=== PATIENT | female | born 1960 | race Caucasian/White ===

== ENCOUNTER 2016-08-19 21:26 | Emergency (ER) | payer SELFPAY ==
[2016-08-19] MEDS ORDERED: ASPIRIN 81 MG TABLET, CHEWABLE PO ONE (21:38)
[2016-08-19] MEDS ORDERED: MECLIZINE HCL 25 MG TABLET PO ONE (22:51)
--- NOTE | 2016-08-19 23:04 | ER Document Report ---
ED General - General Mode of Arrival: Ambulatory Information source: Patient TRAVEL OUTSIDE OF THE [place] IN LAST 30 DAYS: No - HPI Patient complains to provider of: Chest Pain Onset: This evening - 2100 Onset/Duration: Sudden, Persistent Quality of pain: Pressure Associated symptoms: Chest pain, Shortness of breath, Other - Dizziness Exacerbated by: Walking <SLIM SOARES - Last Filed: 08/19/16 22:54> <GISELLE CUNNINGHAM - Last Filed: 08/20/16 01:19> - General Chief Complaint: Chest Pain > 30 Stated Complaint: CHEST PAIN Time Seen by Provider: 08/19/16 22:43 Notes: Patient is a 56-year-old female presenting to the emergency department concerned of chest pain radiating into her right shoulder and arm onset approximately 2100 this evening. Patient states she was arguing on the phone with her youngest daughter when the pain began. Patient also complains of dizziness onset yesterday continuing into today, and shortness of breath onset today, worse with exertion. Patient's only past medical history includes hypothyroidism, and she smokes approximately 1 pack per day. Patient states she just moved here from [place], so she has not established with a primary care physician at this point. (SLIM SOARES) - Related Data Allergies/Adverse Reactions: No Known Allergies Allergy (Unverified 08/19/16 21:38) Past Medical History - General Information source: Patient - Social History Smoking Status: Current Every Day Smoker Cigarette use (# per day): Yes - 20 Frequency of alcohol use: Rare Drug Abuse: None Family History: Reviewed & Not Pertinent Patient has suicidal ideation: No Patient has homicidal ideation: No Endocrine Medical History: Reports: Hx Hypothyroidism Past Surgical History: Reports: Hx Cholecystectomy, Hx Orthopedic Surgery - Ankle-bone spur <SLIM SOARES - Last Filed: 08/19/16 22:54> Review of Systems - Review of Systems Constitutional: No symptoms reported EENT: No symptoms reported Cardiovascular: See HPI, Chest pain - radiates into R shoulder/arm, Dizziness Respiratory: See HPI, Short of breath - worse with exertion Gastrointestinal: No symptoms reported Genitourinary: No symptoms reported Female Genitourinary: No symptoms reported Musculoskeletal: No symptoms reported Skin: No symptoms reported Hematologic/Lymphatic: No symptoms reported Neurological/Psychological: No symptoms reported -: Yes All other systems reviewed and negative <SLIM SOARES - Last Filed: 08/19/16 22:54> Physical Exam - General General appearance: Alert In distress: None - HEENT Head: Normocephalic, Atraumatic, Other - Increased dizziness with rapid head movement Eyes: Normal Pupils: PERRL Pharynx: Normal - Respiratory Respiratory status: No respiratory distress Chest status: Nontender Breath sounds: Other - Coarse breath sounds, left > right Chest palpation: Normal - Cardiovascular Rhythm: Regular Heart sounds: Normal auscultation Murmur: No - Abdominal Inspection: Normal Tenderness: Nontender - Back Back: Normal, Nontender - Extremities General upper extremity: Normal inspection, Nontender General lower extremity: Normal inspection, Nontender - Neurological Neuro grossly intact: Yes Cognition: Normal Orientation: AAOx4 Julia Coma Scale Eye Opening: Spontaneous Julia Coma Scale Verbal: Oriented Julia Coma Scale Motor: Obeys Commands Julia Coma Scale Total: 15 Speech: Normal - Psychological Associated symptoms: Normal affect, Normal mood - Skin Skin Temperature: Warm Skin Moisture: Dry Skin Color: Normal <SLIM SOARES - Last Filed: 08/19/16 22:54> Course <SLIM SOARES - Last Filed: 08/19/16 22:54> - Laboratory Result Diagrams: 08/20/16 00:15 08/20/16 00:15 <GISELLE CUNNINGHAM - Last Filed: 08/20/16 01:19> - Re-evaluation Re-evalutation: 08/20/16 01:13 Patient is now resting quite comfortably. Her dizziness has improved considerably. She is able to sit up and look about without the dizzy sensation she had earlier when first seen. She has 2 different issues going on, one is vertigo and the other is anxiety stress related to the argument she had with her daughter. (GISELLE CUNNINGHAM) - Vital Signs Vital signs: Temp Pulse Resp BP Pulse Ox 98.0 F 82 16 150/65 H 98 08/19/16 21:35 08/19/16 21:35 08/19/16 21:35 08/19/16 21:35 08/19/16 21:35 - Laboratory Laboratory results interpreted by me: 08/20/16 08/20/16 00:15 00:15 WBC 11.5 H BUN 6 L Discharge <SLIM SOARES - Last Filed: 08/19/16 22:54> <GISELLE CUNNINGHAM - Last Filed: 08/20/16 01:19> - Discharge Clinical Impression: Vertigo Chest pain Qualifiers: Chest pain type: unspecified Qualified Code(s): R07.9 - Chest pain, unspecified Condition: Stable Disposition: HOME, SELF-CARE Additional Instructions: Vertigo: You have experienced an episode of vertigo -- a whirling dizziness which may be accompanied by nausea and vomiting or staggering. Vertigo is often caused by an irritation of the inner ear, in which case it is called labyrinthitis. It can also be a symptom of a degenerating inner ear, nerve damage, or brain injury. Your physician has evaluated you to determine whether any further testing is necessary. Vertigo is often treated with dramamine or meclizine. These medications are helpful, but stronger medication may be needed if you are vomiting. Rest in bed. You should not drive or operate machinery until completely better. It may take one to three weeks for recovery. If there are new symptoms, such as decreased hearing or vision, severe headache, weakness or faintness, or confusion, call the physician. Chest Pain of Unclear Cause: The exact cause of your chest pain isn't clear. Fortunately, there is no evidence of a dangerous medical condition. Further testing may be required to find the source of the pain. Most often, we find that this pain is coming from the chest wall -- the muscles or rib joints in the chest. But chest pain can come from the lung and lung lining, the esophagus, the heart valves or heart lining, and even the stomach or gallbladder. Rest. Eat lightly until the pain is gone. You should call the physician immediately if the pain radiates to the shoulder, jaw or arms; if you start to run a fever or develop a cough; or if you develop shortness of breath, or other new or alarming symptoms. TAKE THE MEDICATION PRESCRIBED FOR VERTIGO SYMPTOMS. REST. DRINK PLENTY OF FLUIDS. DO NOT DRIVE, OPERATE MACHINERY OR PUT YOURSELF AT RISK OF INJURY UNTIL THE DIZZY SYMPTOMS HAVE COMPLETELY CLEARED. FOLLOW UP WITH A LOCAL MEDICAL DOCTOR FOR REGULAR MEDICAL CARE. RETURN TO THE EMERGENCY ROOM IF ANY NEW OR WORSENING SYMPTOMS. Prescriptions: Meclizine HCl [Antivert 25 mg Tablet] 25 mg PO TID PRN #20 tablet PRN Reason: Scribe Attestation: 08/20/16 01:19 I personally performed the services described in the documentation, reviewed and edited the documentation which was dictated to the scribe in my presence, and it accurately records my words and actions. (GISELLE CUNNINGHAM) Scribe Documentation - Scribe Written by Ari:: Ari Monet, 08/19/2016 2254 acting as scribe for :: Thien <SLIM SOARES - Last Filed: 08/19/16 22:54>
--- NOTE | 2016-08-19 23:32 | RADIOLOGY REPORT (SQ) ---
EXAM DESCRIPTION: CHEST SINGLE VIEW COMPLETED DATE/TIME: 08/19/2016 11:15 pm REASON FOR STUDY: CHEST PAIN COMPARISON: None. EXAM PARAMETERS: NUMBER OF VIEWS: One view. TECHNIQUE: Single frontal radiographic view of the chest acquired. RADIATION DOSE: NA LIMITATIONS: None. FINDINGS: LUNGS AND PLEURA: No opacities, masses or pneumothorax. No pleural effusion. MEDIASTINUM AND HILAR STRUCTURES: No masses. Contour normal. HEART AND VASCULAR STRUCTURES: Heart normal in size. Normal vasculature. BONES: No acute findings. HARDWARE: None in the chest. OTHER: No other significant finding. IMPRESSION: NO ACUTE RADIOGRAPHIC FINDING IN THE CHEST. TECHNICAL DOCUMENTATION: JOB ID: [id number]
[2016-08-20 00:40] LABS: ABSOLUTE BASOPHILS # (AUTO) 0.1 10^3/uL (0.0-0.2); ABSOLUTE EOSINOPHILS # (AUTO) 0.3 10^3/uL (0.0-0.6); ABSOLUTE MONOCYTES (AUTO) 0.7 10^3/uL (0.1-1.4); ABSOLUTE NEUT (AUTO) 6.4 10^3/uL (1.7-8.2); BASOPHILS % (AUTO) 0.6 % (0-2); EOSINOPHILS % (AUTO) 2.9 % (0-6); HEMOGLOBIN 14.8 g/dL (12.0-15.5); HGB HCT DIFFERENCE 0.4; LYMPHOCYTES % (AUTO) 34.8 % (13-45); MEAN CORPUSCULAR HEMOGLOBIN 31.7 pg (27.0-33.4); MEAN CORPUSCULAR HGB CONC 33.7 g/dL (32.0-36.0); MEAN CORPUSCULAR VOLUME 94 fl (80-97); MONOCYTES % (AUTO) 5.8 % (3-13); RED BLOOD COUNT 4.68 10^6/uL (3.72-5.28); RED CELL DISTRIBUTION WIDTH 12.8 % (11.5-14.0); SEGMENTED NEUTROPHILS % (AUTO) 55.9 % (42-78); WHITE BLOOD COUNT 11.5 10^3/uL (4.0-10.5)
[2016-08-20 00:52] LABS: ALANINE AMINOTRANSFERASE 24 U/L (9-52); ALBUMIN 4.1 g/dL (3.5-5.0); ALKALINE PHOSPHATASE 112 U/L (38-126); ANION GAP 9 (5-19); ASPARTATE AMINO TRANSFERASE 18 U/L (14-36); BILIRUBIN,DIRECT 0.3 mg/dL (0.0-0.4); BILIRUBIN,TOTAL 0.4 mg/dL (0.2-1.3); BLOOD UREA NITROGEN 6 mg/dL (7-20); CALCIUM 9.6 mg/dL (8.4-10.2); CARBON DIOXIDE 27 mmol/L (22-30); CHLORIDE 105 mmol/L (98-107); CREATINE KINASE 111 U/L (30-135); CREATININE RESULT 0.78 mg/dL (0.52-1.25); GLUCOSE 89 mg/dL (75-110); POTASSIUM 3.8 mmol/L (3.6-5.0); SODIUM 141.1 mmol/L (137-145); TOTAL PROTEIN 7.2 g/dL (6.3-8.2)
[2016-08-20 01:02] LABS: CREATINE KINASE MB 0.44 ng/mL (<4.55)
[2016-08-20 01:03] LABS: TROPONIN I < 0.012 ng/mL
[2016-08-20 01:46] VITALS: BP 120/71
--- NOTE | 2016-08-20 10:04 | EKG REPORT ---
SEVERITY:- ABNORMAL ECG - SINUS RHYTHM LOW VOLTAGE IN FRONTAL LEADS CONSIDER ANTEROSEPTAL INFARCT : Confirmed by: Kemal Andrade 20-Aug-2016 10:04:00
== END 2016-08-20 02:10 | disposition home or self-care (01) ==
LOC: ER 21:26
DX: R42 Dizziness and giddiness (principal); R07.9 Chest pain, unspecified; M25.511 Pain in right shoulder; F17.210 Nicotine dependence, cigarettes, uncomplicated
CPT/HCPCS: 36415; 71010; 80053; 82550; 82553; 84484; 85025; 85379; 93005; 93010; 99285

== ENCOUNTER 2016-12-03 | Emergency (ER) | payer OTHER ==
--- NOTE | 2016-12-03 02:40 | ER Document Report ---
ED Extremity Problem, Upper - General Chief Complaint: Shoulder Injury Stated Complaint: SHOULDER PAIN Time Seen by Provider: 12/03/16 02:01 Mode of Arrival: Ambulatory Information source: Patient Notes: This 56-year-old female patient comes emergency room complaining of pain to the right shoulder. 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 She fell onto her right side on the right hip and right shoulder. The right hip does not really hurt much but the right upper arm anteriorly near the shoulder is quite painful. Is also very painful to attempt to abduct the shoulder and arm. TRAVEL OUTSIDE OF THE [place] IN LAST 30 DAYS: No - Related Data Allergies/Adverse Reactions: No Known Allergies Allergy (Verified 12/03/16 00:40) Past Medical History - General Information source: Patient - Social History Smoking Status: Current Every Day Smoker Cigarette use (# per day): Yes - 1/2 PPD Chew tobacco use (# tins/day): No Smoking Education Provided: No Frequency of alcohol use: Occasional Drug Abuse: None Occupation: [employer] Lives with: Family Family History: Reviewed & Not Pertinent Patient has suicidal ideation: No Patient has homicidal ideation: No Pulmonary Medical History: Reports: Hx COPD Endocrine Medical History: Reports: Hx Hypothyroidism - Does not take medication because she does not have insurance Past Surgical History: Reports: Hx Cholecystectomy, Hx Orthopedic Surgery - Ankle-bone spur Review of Systems - Review of Systems Constitutional: No symptoms reported EENT: No symptoms reported Cardiovascular: No symptoms reported Respiratory: No symptoms reported Gastrointestinal: No symptoms reported Genitourinary: No symptoms reported Female Genitourinary: Post menopausal Musculoskeletal: See HPI Skin: No symptoms reported Hematologic/Lymphatic: No symptoms reported Neurological/Psychological: No symptoms reported Physical Exam - Vital signs Vitals: Temp Pulse Resp BP Pulse Ox 98.0 F 58 L 18 128/86 H 98 12/03/16 00:39 12/03/16 00:39 12/03/16 00:39 12/03/16 00:39 12/03/16 00:39 Interpretation: Normal - General General appearance: Alert In distress: Mild - HEENT Head: Normocephalic, Atraumatic Eyes: Normal Pupils: PERRL Neck: Normal - Respiratory Respiratory status: No respiratory distress - Cardiovascular Rhythm: Regular - Abdominal Inspection: Normal - Back Back: Normal - Extremities General upper extremity: Other - Very tender to palpate the right upper anterior and anterior lateral arm just below the shoulder region. Passive abduction of the arm is painful during motion, it feels better when she totally relaxes the muscles when the arm is supported. There is no bruising or deformity. General lower extremity: Other - There is minimal tenderness to the right lateral hip region - Neurological Neuro grossly intact: Yes - Psychological Associated symptoms: Normal affect, Normal mood - Skin Skin Temperature: Warm Skin Moisture: Dry Skin Color: Normal Course - Vital Signs Vital signs: Temp Pulse Resp BP Pulse Ox 98.0 F 58 L 18 128/86 H 98 12/03/16 00:39 12/03/16 00:39 12/03/16 00:39 12/03/16 00:39 12/03/16 00:39 - Diagnostic Test Radiology reviewed: Image reviewed, Reports reviewed - No fractures are seen on x-ray of the right shoulder Discharge - Discharge Clinical Impression: Contusion of right shoulder Qualifiers: Encounter type: initial encounter Qualified Code(s): S40.011A - Contusion of right shoulder, initial encounter Condition: Stable Disposition: HOME, SELF-CARE Additional Instructions: Contusion Your injury has resulted in a contusion -- a crushing of the deep tissues. No injury to important structures was detected during the physician's exam. Contusions vary in the amount of pain they cause, and in the length of time required for healing. Typically, the area will become bruised, and will remain painful to touch for two or three weeks. However, most patients are back to working and playing within a few days. After the initial period of rest and cold-packs, your symptoms (together with the doctor's recommendations) will determine how rapidly you can get back to full activity. Usually this means "do what feels okay, but don't do things that hurt." If re-examination was recommended, it's important to follow up as instructed. Call the doctor or return any time if pain increases, if swelling becomes severe, if you develop numbness or weakness in an injured extremity, or if any other alarming symptoms occur. Use of the sling to provide support for your arm. Use ice packs to the painful area this evening. Limit the use of your right arm for a few days. Take Tylenol and ibuprofen or Aleve for pain if needed after tonight. Follow-up with local medical doctor or with [facility] surgery orthopedic division if not improving. RETURN TO THE EMERGENCY ROOM IF ANY NEW OR WORSENING SYMPTOMS. Forms: Return to Work
[2016-12-03] MEDS ORDERED: OXYCODONE-ACETAMINOPHEN 5-325 MG TABLET PO ONE (02:42)
--- NOTE | 2016-12-03 03:36 | RADIOLOGY REPORT (SQ) ---
EXAM DESCRIPTION: SHOULDER RIGHT 2 OR MORE VIEWS COMPLETED DATE/TIME: 12/03/2016 3:18 am REASON FOR STUDY: fall COMPARISON: None. NUMBER OF VIEWS: Three views. TECHNIQUE: Internal rotation, external rotation, and Y view images acquired of the right shoulder. LIMITATIONS: None. FINDINGS: MINERALIZATION: Normal. BONES: No acute fracture or dislocation. No worrisome bone lesions. JOINTS: No dislocation. VISUALIZED LUNGS AND RIBS: No pneumothorax. No rib fracture. SOFT TISSUES: No radiopaque foreign body. OTHER: No other significant finding. IMPRESSION: NEGATIVE STUDY OF THE RIGHT SHOULDER. NO RADIOGRAPHIC EVIDENCE OF ACUTE INJURY. TECHNICAL DOCUMENTATION: JOB ID: [id number] [employer]- All Rights Reserved
[2016-12-03] MEDS ORDERED: HYDROCODONE/ACETAMINOPHEN 5-325 MG 6 TAB/DSPK PO PRN (03:38)
[2016-12-03 04:12] VITALS: BP 121/76
== END 2016-12-03 04:10 | disposition home or self-care (01) ==
LOC: ER
DX: S40.011A Contusion of right shoulder, initial encounter (principal); M25.511 Pain in right shoulder; W18.39XA Other fall on same level, initial encounter; Y92.512 Supermarket, store or market as the place of occurrence of the external cause; Y99.0 Civilian activity done for income or pay; J44.9 Chronic obstructive pulmonary disease, unspecified; F17.210 Nicotine dependence, cigarettes, uncomplicated
CPT/HCPCS: 99283

== ENCOUNTER 2016-12-16 13:43 | Emergency (ER) | payer OTHER ==
--- NOTE | 2016-12-16 14:16 | ER Document Report ---
ED General - General Chief Complaint: Dizziness Stated Complaint: DIZZINESS,NO ENERGY Time Seen by Provider: 12/16/16 14:15 Mode of Arrival: Ambulatory Information source: Patient Notes: 56-year-old female who is supposed be on Synthroid 0.088 mcg daily presents with concerns that she has not been taking it since June and that she feels very weak. Patient denies any fevers or chills feels that she is trained TRAVEL OUTSIDE OF THE [place] IN LAST 30 DAYS: No - HPI Onset: Other Onset/Duration: Persistent Quality of pain: No pain Severity: Mild Pain Level: Denies Associated symptoms: Weakness Exacerbated by: Denies Relieved by: Denies Similar symptoms previously: Yes Recently seen / treated by doctor: Yes - Related Data Allergies/Adverse Reactions: No Known Allergies Allergy (Verified 12/16/16 13:51) Past Medical History - Social History Smoking Status: Never Smoker Cigarette use (# per day): No Chew tobacco use (# tins/day): No Smoking Education Provided: No Family History: Reviewed & Not Pertinent Patient has suicidal ideation: No Patient has homicidal ideation: No Pulmonary Medical History: Reports: Hx COPD Endocrine Medical History: Reports: Hx Hypothyroidism - Does not take medication because she does not have insurance Renal/ Medical History: Denies: Hx Peritoneal Dialysis Past Surgical History: Reports: Hx Cholecystectomy, Hx Orthopedic Surgery - Ankle-bone spur Review of Systems - Review of Systems Notes: REVIEW OF SYSTEMS: CONSTITUTIONAL : Denies fever, chills, or sweats. Denies recent illness. EENT: Denies eye, ear, throat, or mouth pain or symptoms. Denies nasal or sinus congestion or discharge. Denies throat, tongue, or mouth swelling or difficulty swallowing. CARDIOVASCULAR: Denies chest pain. Denies palpitations or racing or irregular heart beat. Denies ankle edema. RESPIRATORY: Denies cough, cold, or chest congestion. Denies shortness of breath, difficulty breathing, or wheezing. GASTROINTESTINAL: Denies abdominal pain or distention. Denies nausea, vomiting , or diarrhea. Denies blood in vomitus, stools, or per rectum. Denies black, tarry stools. Denies constipation. GENITOURINARY: Denies difficulty urinating, painful urination, burning, frequency, blood in urine, or discharge. FEMALE GENITOURINARY: Denies vaginal bleeding, heavy or abnormal periods, irregular periods. Denies vaginal discharge or odor. MUSCULOSKELETAL: Denies back or neck pain or stiffness. Denies joint pain or swelling. SKIN: Denies rash, lesions or sores. HEMATOLOGIC : Denies easy bruising or bleeding. LYMPHATIC: Denies swollen, enlarged glands. NEUROLOGICAL: Admits to generalized weakness PSYCHIATRIC: Denies anxiety or stress. Denies depression, suicidal ideation, or homicidal ideation. ALL OTHER SYSTEMS REVIEWED AND NEGATIVE. PHYSICAL EXAMINATION: GENERAL: Well-appearing, well-nourished and in no acute distress. HEAD: Atraumatic, normocephalic. EYES: Pupils equal round and reactive to light, extraocular movements intact, conjunctiva are normal. ENT: Nares patent, oropharynx clear without exudates. Moist mucous membranes. NECK: Normal range of motion, supple without lymphadenopathy LUNGS: Breath sounds clear to auscultation bilaterally and equal. No wheezes rales or rhonchi. HEART: Regular rate and rhythm without murmurs ABDOMEN: Soft, nontender, nondistended abdomen. No guarding, no rebound. No masses appreciated. Female : deferred Musculoskeletal: Normal range of motion, no pitting or edema. No cyanosis. NEUROLOGICAL: Cranial nerves grossly intact. Normal speech, normal gait. Normal sensory, motor exams PSYCH: Normal mood, normal affect. SKIN: Warm, Dry, normal turgor, no rashes or lesions noted. Dictation was performed using [employer] voice recognition software Physical Exam - Vital signs Vitals: Temp Pulse Resp BP Pulse Ox 97.6 F 73 20 123/89 H 97 12/16/16 13:51 12/16/16 13:51 12/16/16 13:51 12/16/16 13:51 12/16/16 13:51 Course - Re-evaluation Re-evalutation: 12/16/16 14:16 Patient is alert oriented and speaks with no difficulty. I will check her thyroid level will put her back on her medication 12/16/16 20:26 Patient's TSH is at 498, free T3 and T4 noted as well. Patient will be started on Synthroid I did speak with hospitalist and agreed at this time she does not meet qualifications for admission as she does not have myxedema coma. Patient states she will take her medications and After performing a Medical Screening Examination, I estimate there is LOW risk for ACUTE CORONARY SYNDROME, RESPIRATORY FAILURE, SEPSIS OR MENINGITIS, thus I consider the discharge disposition reasonable. I have reevaluated this patient multiple times and no significant life threatening changes are noted. The patient and I have discussed the diagnosis and risks, and we agree with discharging home with close follow-up. We also discussed returning to the Emergency Department immediately if new or worsening symptoms occur. We have discussed the symptoms which are most concerning (e.g., changing or worsening pain, trouble swallowing or breathing, neck stiffness, fever) that necessitate immediate return. - Vital Signs Vital signs: Temp Pulse Resp BP Pulse Ox 97.7 F 61 18 131/73 H 99 12/16/16 18:20 12/16/16 18:20 12/16/16 18:20 12/16/16 18:20 12/16/16 18:20 - Laboratory Result Diagrams: 12/16/16 14:30 12/16/16 14:30 Laboratory results interpreted by me: 12/16/16 12/16/16 14:30 14:30 AST 57 H TSH 498.00 H Free T4 < 0.07 L Free T3 pg/mL 0.55 L Discharge - Discharge Clinical Impression: Weakness Hypothyroid Qualifiers: Hypothyroidism type: unspecified Qualified Code(s): E03.9 - Hypothyroidism, unspecified Condition: Stable Disposition: HOME, SELF-CARE Instructions: Hypothyroidism ([facility]) Additional Instructions: You must take your medication as prescribed, you must follow-up with your primary care physician for evaluation Prescriptions: Levothyroxine Sodium [Synthroid 0.15 mg Tablet] 0.15 mg PO DAILY #30 tablet Referrals: [facility] [Primary Care Provider] - Follow up as needed
[2016-12-16 14:50] LABS: ABSOLUTE BASOPHILS # (AUTO) 0.1 10^3/uL (0.0-0.2); ABSOLUTE EOSINOPHILS # (AUTO) 0.2 10^3/uL (0.0-0.6); ABSOLUTE LYMPHOCYTES (AUTO) 2.4 10^3/uL (0.5-4.7); ABSOLUTE MONOCYTES (AUTO) 0.5 10^3/uL (0.1-1.4); ABSOLUTE NEUT (AUTO) 5.8 10^3/uL (1.7-8.2); BASOPHILS % (AUTO) 1.1 % (0-2); EOSINOPHILS % (AUTO) 1.9 % (0-6); HEMATOCRIT 42.8 % (36.0-47.0); HEMOGLOBIN 14.8 g/dL (12.0-15.5); HGB HCT DIFFERENCE 1.6; LYMPHOCYTES % (AUTO) 26.8 % (13-45); MEAN CORPUSCULAR HEMOGLOBIN 32.4 pg (27.0-33.4); MEAN CORPUSCULAR HGB CONC 34.5 g/dL (32.0-36.0); MEAN CORPUSCULAR VOLUME 94 fl (80-97); MONOCYTES % (AUTO) 5.6 % (3-13); RED BLOOD COUNT 4.57 10^6/uL (3.72-5.28); RED CELL DISTRIBUTION WIDTH 13.4 % (11.5-14.0); SEGMENTED NEUTROPHILS % (AUTO) 64.6 % (42-78)
[2016-12-16 15:08] LABS: ALANINE AMINOTRANSFERASE 38 U/L (9-52); ALBUMIN 4.6 g/dL (3.5-5.0); ALKALINE PHOSPHATASE 62 U/L (38-126); ANION GAP 11 (5-19); ASPARTATE AMINO TRANSFERASE 57 U/L (14-36); BILIRUBIN,DIRECT 0.4 mg/dL (0.0-0.4); BILIRUBIN,TOTAL 0.7 mg/dL (0.2-1.3); BLOOD UREA NITROGEN 8 mg/dL (7-20); CALCIUM 9.7 mg/dL (8.4-10.2); CARBON DIOXIDE 26 mmol/L (22-30); CHLORIDE 102 mmol/L (98-107); CREATININE RESULT 0.91 mg/dL (0.52-1.25); GLUCOSE 95 mg/dL (75-110); TOTAL PROTEIN 7.8 g/dL (6.3-8.2)
[2016-12-16 15:27] LABS: FREE T3 0.55 pg/mL (2.77-5.27)
[2016-12-16] MEDS ORDERED: LEVOTHYROXINE SODIUM 0.15 MG TABLET PO ONE (17:07)
[2016-12-16 18:23] VITALS: BP 131/73
== END 2016-12-16 18:24 | disposition home or self-care (01) ==
LOC: ER 13:43
DX: R53.1 Weakness (principal); E03.9 Hypothyroidism, unspecified; J44.9 Chronic obstructive pulmonary disease, unspecified; Z90.49 Acquired absence of other specified parts of digestive tract
CPT/HCPCS: 36415; 80053; 84439; 84443; 84481; 85025; 99284

== ENCOUNTER → 2017-01-17 | Outpatient (CLI) | payer OTHER ==
--- NOTE | 2017-01-17 09:35 | WOMENS IMAGING REPORT ---
EXAM DESCRIPTION: U/S ABDOMEN TOTAL COMPLETED DATE/TIME: 01/17/2017 8:12 am REASON FOR STUDY: ABDOMINAL PAIN R10.11 RIGHT UPPER QUADRANT PAIN COMPARISON: None. TECHNIQUE: Dynamic and static grayscale images acquired of the abdomen and recorded on PACS. Additio nal selected color Doppler and spectral images recorded. LIMITATIONS: None. FINDINGS: PANCREAS: No masses. Visualized pancreatic duct normal caliber. LIVER: No masses. Echotexture normal. LIVER VASCULATURE: Normal directional flow of the main portal vein and hepatic veins. GALLBLADDER: Surgically absent. ULTRASOUND-DETECTED HEATH'S SIGN: Not applicable. INTRAHEPATIC DUCTS AND COMMON DUCT: CBD and intrahepatic ducts normal caliber. No filling defects. INFERIOR VENA CAVA: Normal flow. AORTA: No aneurysm. RIGHT KIDNEY: Normal size. Normal echogenicity. No solid or suspicious masses. No hydronephros is. No calcifications. LEFT KIDNEY: Normal size. Normal echogenicity. No solid or suspicious masses. No hydronephrosi s. No calcifications. SPLEEN: Normal size. No solid masses. PERITONEAL AND PLEURAL SPACES: No ascites or effusions. OTHER: No other significant finding. IMPRESSION: NORMAL ABDOMINAL ULTRASOUND. TECHNICAL DOCUMENTATION: JOB ID: [id number] [employer]- All Rights Reserved
== END ==
LOC: WI 07:33
DX: R10.11 Right upper quadrant pain (principal)
CPT/HCPCS: 76700

== ENCOUNTER → 2017-06-06 | Outpatient (CLI) | payer OTHER | LOC: CCC 16:07 | DX: E03.8 Other specified hypothyroidism (principal) | CPT/HCPCS: 36415; 84436; 84443 ==

== ENCOUNTER → 2017-07-25 | Outpatient (CLI) | payer OTHER ==
[2017-07-25 13:10] LABS: ABSOLUTE BASOPHILS # (AUTO) 0.1 10^3/uL (0.0-0.2); ABSOLUTE EOSINOPHILS # (AUTO) 0.2 10^3/uL (0.0-0.6); ABSOLUTE LYMPHOCYTES (AUTO) 2.7 10^3/uL (0.5-4.7); ABSOLUTE MONOCYTES (AUTO) 0.6 10^3/uL (0.1-1.4); ABSOLUTE NEUT (AUTO) 9.1 10^3/uL (1.7-8.2); BASOPHILS % (AUTO) 0.5 % (0-2); EOSINOPHILS % (AUTO) 1.7 % (0-6); HEMATOCRIT 44.2 % (36.0-47.0); HEMOGLOBIN 15.1 g/dL (12.0-15.5); LYMPHOCYTES % (AUTO) 21.2 % (13-45); MEAN CORPUSCULAR HEMOGLOBIN 31.1 pg (27.0-33.4); MEAN CORPUSCULAR HGB CONC 34.2 g/dL (32.0-36.0); MEAN CORPUSCULAR VOLUME 91 fl (80-97); MONOCYTES % (AUTO) 5.1 % (3-13); PLATELET COUNT 346 10^3/uL (150-450); RED BLOOD COUNT 4.86 10^6/uL (3.72-5.28); RED CELL DISTRIBUTION WIDTH 12.9 % (11.5-14.0); SEGMENTED NEUTROPHILS % (AUTO) 71.5 % (42-78); TOTAL CELLS COUNTED % (AUTO) 100 %; WHITE BLOOD COUNT 12.7 10^3/uL (4.0-10.5)
[2017-07-25 13:41] LABS: ALANINE AMINOTRANSFERASE 30 U/L (9-52); ALBUMIN 4.5 g/dL (3.5-5.0); ALKALINE PHOSPHATASE 86 U/L (38-126); ANION GAP 15 (5-19); ASPARTATE AMINO TRANSFERASE 23 U/L (14-36); BILIRUBIN,DIRECT 0.3 mg/dL (0.0-0.4); BILIRUBIN,TOTAL 0.3 mg/dL (0.2-1.3); BLOOD UREA NITROGEN 9 mg/dL (7-20); CALCIUM 10.2 mg/dL (8.4-10.2); CARBON DIOXIDE 28 mmol/L (22-30); CHLORIDE 104 mmol/L (98-107); CHOLESTEROL 195.09 mg/dL (0-200); GLUCOSE 100 mg/dL (75-110); POTASSIUM 4.7 mmol/L (3.6-5.0); SODIUM 146.7 mmol/L (137-145); TOTAL PROTEIN 7.7 g/dL (6.3-8.2); TRIGLYCERIDES 156 mg/dL (<150)
[2017-07-25 13:52] LABS: DIRECT LDL 100 mg/dL (<100)
[2017-07-25 13:56] LABS: VLDL CHOLESTEROL 31.2 mg/dL (10-31)
== END ==
LOC: CCC 11:48
DX: Z00.00 Encounter for general adult medical examination without abnormal findings (principal); E03.9 Hypothyroidism, unspecified; R94.5 Abnormal results of liver function studies
CPT/HCPCS: 36415; 80053; 80061; 83036; 84443; 85025

== ENCOUNTER 2017-11-20 02:05 | Emergency (ER) | payer OTHER ==
[2017-11-20 02:10] VITALS: BP 115/73
== END 2017-11-20 03:20 | disposition left against medical advice (07) ==
LOC: ER 02:05
DX: Z53.21 Procedure and treatment not carried out due to patient leaving prior to being seen by health care provider (principal)

== ENCOUNTER 2018-12-20 17:39 | Emergency (ER) | payer BC, OTHER ==
--- NOTE | 2018-12-20 18:31 | ER Document Report ---
ED Medical Screen (RME) - General Chief Complaint: Pelvic Pain Stated Complaint: BLOOD IN URINE Time Seen by Provider: 12/20/18 18:29 Mode of Arrival: Ambulatory Information source: Patient Notes: Patient presents complaining of dysuria and hematuria that started today. Patient denies any flank pain fever nausea or vomiting. I have greeted and performed a rapid initial assessment of this patient. A comprehensive ED assessment and evaluation of the patient, analysis of test results and completion of the medical decision making process will be conducted by additional ED providers. TRAVEL OUTSIDE OF THE [place] IN LAST 30 DAYS: No - Related Data Allergies/Adverse Reactions: acetaminophen [From Percocet] Adverse Reaction (Verified 12/20/18 18:27) oxycodone [From Percocet] Adverse Reaction (Verified 12/20/18 18:27) Past Medical History - Social History Chew tobacco use (# tins/day): No Frequency of alcohol use: None Drug Abuse: None Pulmonary Medical History: Reports: Hx COPD Endocrine Medical History: Reports: Hx Hypothyroidism - Does not take medication because she does not have insurance Renal/ Medical History: Denies: Hx Peritoneal Dialysis Past Surgical History: Reports: Hx Cholecystectomy, Hx Orthopedic Surgery - Ankle-bone spur Physical Exam - Vital signs Vitals: Temp Pulse Resp BP Pulse Ox 98.1 F 106 H 18 118/74 98 12/20/18 17:54 12/20/18 17:54 12/20/18 17:54 12/20/18 17:54 12/20/18 17:54 - General Notes: Suprapubic tenderness - Back Back: No: CVA tenderness Course - Vital Signs Vital signs: Temp Pulse Resp BP Pulse Ox 98.1 F 106 H 18 118/74 98 12/20/18 17:54 12/20/18 17:54 12/20/18 17:54 12/20/18 17:54 12/20/18 17:54
[2018-12-20 19:03] LABS: APPEARANCE,URINE CLOUDY; BILIRUBIN,URINE NEGATIVE (NEGATIVE); GLUCOSE, URINE NEGATIVE (NEGATIVE); KETONES,URINE NEGATIVE (NEGATIVE); LEUKOCYTE ESTERASE,URINE LARGE (NEGATIVE); NITRITE,URINE NEGATIVE (NEGATIVE); PROTEIN,URINE 100 mg/dL (NEGATIVE); URINE SPECIFIC GRAVITY 1.004; UROBILINOGEN,URINE NEGATIVE mg/dL (<2.0)
[2018-12-20 19:04] LABS: COLOR,URINE YELLOW
[2018-12-20] MEDS ORDERED: CEPHALEXIN 500 MG CAPSULE PO ONE (22:08)
--- NOTE | 2018-12-20 22:13 | ER Document Report ---
ED General - General Chief Complaint: Pelvic Pain Stated Complaint: BLOOD IN URINE Time Seen by Provider: 12/20/18 18:29 Primary Care Provider: JOCELYN JOHNSON PA [Primary Care Provider] - Follow up as needed Mode of Arrival: Ambulatory Notes: Patient is a 58-year-old female presents to the emergency department for dysuria and hematuria that started today. States she does have a history of kidney stones but is denying any flank pain. States minor suprapubic tenderness. Patient's denying any nausea, vomiting, fevers. She is denying any vaginal discharge TRAVEL OUTSIDE OF THE [place] IN LAST 30 DAYS: No - Related Data Allergies/Adverse Reactions: acetaminophen [From Percocet] Adverse Reaction (Verified 12/20/18 18:27) oxycodone [From Percocet] Adverse Reaction (Verified 12/20/18 18:27) Past Medical History - General Information source: Patient - Social History Smoking Status: Current Every Day Smoker Chew tobacco use (# tins/day): No Frequency of alcohol use: None Drug Abuse: None Family History: Reviewed & Not Pertinent Patient has suicidal ideation: No Patient has homicidal ideation: No Pulmonary Medical History: Reports: Hx COPD Endocrine Medical History: Reports: Hx Hypothyroidism - Does not take medication because she does not have insurance Renal/ Medical History: Denies: Hx Peritoneal Dialysis Past Surgical History: Reports: Hx Cholecystectomy, Hx Orthopedic Surgery - Ankle-bone spur Review of Systems - Review of Systems Constitutional: denies: Fever EENT: No symptoms reported Cardiovascular: No symptoms reported Respiratory: No symptoms reported Gastrointestinal: See HPI Genitourinary: See HPI Female Genitourinary: No symptoms reported Musculoskeletal: No symptoms reported Skin: No symptoms reported Hematologic/Lymphatic: No symptoms reported Neurological/Psychological: No symptoms reported Physical Exam - Vital signs Vitals: Temp Pulse Resp BP Pulse Ox 98.1 F 106 H 18 118/74 98 12/20/18 17:54 12/20/18 17:54 12/20/18 17:54 12/20/18 17:54 12/20/18 17:54 - Notes Notes: GENERAL: Alert, interacts well. No acute distress. HEAD: Normocephalic, atraumatic. EYES: Pupils equal, round, and reactive to light. Extraocular movements intact. ENT: Oral mucosa moist, tongue midline. NECK: Full range of motion. Supple. Trachea midline. LUNGS: Clear to auscultation bilaterally, no wheezes, rales, or rhonchi. No respiratory distress. HEART: Regular rate and rhythm. No murmur ABDOMEN: Soft, minor suprapubic tenderness noted. Otherwise abdominal exam unremarkable. Non-distended. Bowel sounds present in all 4 quadrants. EXTREMITIES: Moves all 4 extremities spontaneously. No edema, normal radial and dorsalis pedis pulses bilaterally. No cyanosis. BACK: no cervical, thoracic, lumbar midline tenderness. No saddle anesthesia, normal distal neurovascular exam. No CVA tenderness noted bilaterally. NEUROLOGICAL: Alert and oriented x3. Normal speech. cranial nerves II through XII grossly intact. PSYCH: Normal affect, normal mood. SKIN: Warm, dry, normal turgor. No rashes or lesions noted. Course - Re-evaluation Re-evalutation: 12/20/18 22:11 Laboratory 12/20/18 18:37 Urine Color YELLOW Urine Appearance CLOUDY Urine pH 7.0 Ur Specific [place] 1.004 Urine Protein 100 H Urine Glucose (UA) NEGATIVE Urine Ketones NEGATIVE Urine Blood LARGE H Urine Nitrite NEGATIVE Urine Bilirubin NEGATIVE Urine Urobilinogen NEGATIVE Ur Leukocyte Esterase LARGE H Urine WBC (Auto) >182 Urine RBC (Auto) 25 Urine Bacteria (Auto) TRACE Urine WBC Clumps FEW Squamous Epi Cells Auto 1 Urine Mucus (Auto) RARE Urine Ascorbic Acid NEGATIVE Patient's urine shows signs of infection, sent for culture, initially treated with Keflex. Patient is afebrile, non-tachycardic, stable for discharge. - Vital Signs Vital signs: Temp Pulse Resp BP Pulse Ox 98.2 F 82 16 116/65 100 12/20/18 22:23 12/20/18 22:23 12/20/18 22:23 12/20/18 22:23 12/20/18 22:23 - Laboratory Laboratory results interpreted by me: 12/20/18 18:37 Urine Protein 100 H Urine Blood LARGE H Ur Leukocyte Esterase LARGE H Discharge - Discharge Clinical Impression: Urinary tract infection Qualifiers: Urinary tract infection type: acute cystitis Hematuria presence: with hematuria Qualified Code(s): N30.01 - Acute cystitis with hematuria Condition: Stable Disposition: HOME, SELF-CARE Instructions: Cephalexin ([facility]), Urinary Anesthetic Agent ([facility]), Urinary Tract Infection ([facility]) Additional Instructions: As we discussed you have been seen and treated in the emergency department for a urinary tract infection. Please take medications as prescribed. Please also stay well-hydrated. Follow-up with your primary care provider in the next 24 to 48 hours. Return to the emergency room for any concerns. Prescriptions: Cephalexin Monohydrate [Keflex 500 mg Capsule] 500 mg PO BID 7 Days #14 capsule Phenazopyridine HCl [Pyridium] 200 mg PO TID 2 Days tablet Forms: Return to Work Referrals: JOCELYN JOHNSON PA [Primary Care Provider] - Follow up as needed
[2018-12-20] MEDS ORDERED: PHENAZOPYRIDINE HCL 200 MG TABLET PO ONE (22:17)
[2018-12-20 22:24] VITALS: BP 116/65
== END 2018-12-20 22:39 | disposition home or self-care (01) ==
LOC: ER 17:39
DX: N30.01 Acute cystitis with hematuria (principal); R10.2 Pelvic and perineal pain; R30.0 Dysuria
CPT/HCPCS: 99283; 87086; 81001; J3490